=== PATIENT | male | born 1990 | race Caucasian/White ===

== ENCOUNTER 2017-03-07 15:44 | Emergency (ER) | payer SELFPAY ==
[2017-03-07 15:46] VITALS: BP 144/75; PULSE 105; RESP 16; TEMP 98.6; O2SAT 99
[2017-03-07] MEDS ORDERED: IBUPROFEN 600 MG TAB PO ONE (16:15)
--- NOTE | 2017-03-07 16:30 | PD ---
HPI . Left ankle injury Chief Complaint: Injury Time Seen by Provider: 16:12 Travel History International Travel<30 days: No Contact w/Intl Traveler<30days: No Traveled to known affect area: No History of Present Illness HPI 27-year-old male patient presents emergency department for evaluation of left ankle pain and swelling 2 months. Patient states his flank approximately month ago and landed on his ankle twisting it in an awkward position. He subsequently has had pain and intermittent edema. Patient has not sought medical attention for the left ankle until today. Patient states he fractured that left ankle when he was 17 years old. Patient denies any surgical repair. Patient is ambulatory without a limp. Patient denies any fever, chills, malaise , chest pain, shortness breath, nausea, vomiting, diarrhea. Denies any major medical history and doesn't take any daily medication. PFSH Past Medical History ADHD: Yes Cancer: No Diabetes: No Diminished Hearing: No Musculoskeletal: Yes (fx rt hand no sx) Psychiatric: Yes (patient sees [facility] emergency physician) Immunizations Current: Yes Seizures: No Thyroid Disease: No Ulcer: No Social History Alcohol Use: Yes (SOCIALLY ) Tobacco Use: No (HX OF PER PT) Substance Use: No (PT DENIES) Allergies-Medications (Allergen,Severity, Reaction): Coded Allergies: No Known Allergies (Verified , 08/01/15) Reported Meds & Prescriptions Reported Meds & Active Scripts Active No Active Prescriptions or Reported Medications Review of Systems Except as stated in HPI: all other systems reviewed are Neg Physical Exam Narrative GENERAL: Well-nourished, well-developed 27-year-old male patient in no acute distress. Nontoxic appearing. SKIN: Focused skin assessment warm/dry. HEAD: Normocephalic. Atraumatic. EYES: No scleral icterus. No injection or drainage. NECK: Supple, trachea midline. No JVD or lymphadenopathy. CARDIOVASCULAR: Regular rate and rhythm without murmurs, gallops, or rubs. Pedal pulses +2 bilaterally. RESPIRATORY: Breath sounds equal bilaterally. No accessory muscle use. GASTROINTESTINAL: Abdomen soft, non-tender, nondistended. MUSCULOSKELETAL: Left ankle mildly to moderately edematous. No obvious deformity, ecchymosis, erythema, cyanosis, or edema. Data Data Last Documented VS Vital Signs Date Time Temp Pulse Resp B/P (MAP) Pulse Ox O2 Delivery O2 Flow Rate FiO2 03/07/17 15:46 98.6 105 16 144/75 (98) 99 Room Air Orders Orders Ankle, Complete ([id number]) (03/07/17 16:15) Ice/Cold Pack (03/07/17 16:15) Ibuprofen (Motrin) (03/07/17 16:15) MDM Medical Decision Making Medical Screen Exam Complete: Yes Emergency Medical Condition: Yes Differential Diagnosis Differential diagnoses include but are not limited to fracture, sprain, strain, contusion Narrative Course X-ray of the left angle ordered and pending. Ice applied to the left ankle. Ibuprofen given for pain management. X-ray of the left ankle shows no acute abnormality. Patient will be discharged home with left ankle Alexys wrapped, rice therapy instructions and to follow-up with orthopedic physician for further evaluation. Patient given instructions to return the emergency Department with any worsening condition. Last Impressions Ankle X-Ray 03/07/17 1615 Signed Impressions: Service Date/Time: Tuesday, March 07, 2017 16:24 - CONCLUSION: No acute abnormality is identified. Que Mendieta MD Diagnosis Primary Impression: Ankle sprain Qualified Codes: S93.402A - Sprain of unspecified ligament of left ankle, initial encounter Referrals: Orthopedist Primary Care Physician Patient Instructions: Ankle Sprain (ED), General Instructions Additional Instructions: Please return to emergency department if your symptoms return or worsen. Follow up with your primary care provider. Follow-up with orthopedist for further evaluation. [id number] ibuprofen or Tylenol today for pain or swelling. RICE therapy to left ankle, rest, ice, Alexys wrap with activity and elevate with resting. Scripts No Active Prescriptions or Reported Meds Disposition: 01 DISCHARGE HOME Condition: Stable Shannan Christine SHARLENE Mar 07, 2017 16:30
--- NOTE | 2017-03-07 16:34 | RADRPT ---
EXAM DATE/TIME: 03/07/2017 16:24 [facility] COMPARISON: No previous studies available for comparison. INDICATIONS : Left ankle pain. Patient tripped over a curb two months ago. Pain since then. MEDICAL HISTORY : Prior left ankle fracture. SURGICAL HISTORY : None. ENCOUNTER: Initial ACUITY: 2 months PAIN SCORE: 5/10 LOCATION: Left ankle. FINDINGS: 3 views the left ankle demonstrate no fracture or dislocation. Ankle mortise is intact. Mineralizatio n is within normal limits and there is no significant arthropathy. No soft tissue abnormality or radi opaque foreign body is identified. CONCLUSION: No acute abnormality is identified. Que Mendieta MD on March 07, 2017 at 16:30 Board Certified Radiologist. This report was verified electronically.
== END 2017-03-07 17:03 | disposition home or self-care (01) ==
LOC: NEPK 15:44
DX: S93.402A Sprain of unspecified ligament of left ankle, initial encounter (principal); F90.9 Attention-deficit hyperactivity disorder, unspecified type; X50.1XXA Overexertion from prolonged static or awkward postures, initial encounter
CPT/HCPCS: 73610; 99282; E0113